=== PATIENT | male | born 1955 | race African-American/Black ===

== ENCOUNTER 2020-06-23 19:48 | Emergency (ER) | payer BC ==
[~2020-06-23] VITALS: Ht 175.3 cm; Wt 78.0 kg
[~2020-06-23 19:48] MED LIST: AMIODARONE HCL 50MG/ML 3ML VIAL IV ONE; CALCIUM CHLORIDE 1GM/10ML SYR IV ONE; EPINEPHRINE 0.1MG/ML (1:10,000) 10ML SYR ONE; SODIUM BICARBONATE 8.4% 1 MEQ/ML 50ML SYR IV ONE
[2020-06-23] MEDS ORDERED: SODIUM CHLORIDE 0.9% 1000ML BAG (SEPSIS BOLUS) IV ONE (20:15)
[2020-06-23 21:15] LABS: BG BASE EXCESS -10.9 mmol/L (-2.0-2.0); BG CARBOXYHEMOGLOBIN 0.1 % (0.5-1.5); BG DEOXYHEMOGLOBIN 2.7 % (0.0-5.0); BG FRACTION INSPIRED OXYGEN 21; BG HCO3 ACT 12.5 mmol/L (22.0-26.0); BG OXYGEN SATURATION 97.3 % (92.0-98.5); BG OXYHEMOGLOBIN 97.2 % (94.0-97.0); BG PCO2 19.7 mmHg (35.0-45.0); BG PO2 114.4 mmHg (75.0-100.0); BG SAMPLE SITE RIGHT RADIAL; BG TOTAL HEMOGLOBIN 6.2 g/dL (12.0-18.0); BG VENT MODE ROOM AIR
[2020-06-23 21:36] LABS: BASOPHILS % 0.1 % (0.0-2.0); LYMPHOCYTES % 10.3 % (20.0-50.0); MEAN CORPUSCULAR HEMOGLOBIN 27.4 pg (28.0-32.0); MEAN CORPUSCULAR VOLUME 86.1 fL (80.0-94.0); MEAN PLATELET VOLUME 10.7 fl (7.4-10.4); MONOCYTES % 5.9 % (2.0-8.0); NEUTROPHILS % 83.7 % (40.0-76.0); PLATELET 185 x1000/uL (130-400); RED CELL DISTRIBUTION WIDTH 14.1 % (11.6-14.6)
[2020-06-23 21:40] LABS: HEMATOCRIT. 18.9 % (42.0-52.0)
[2020-06-23 21:43] LABS: CHLORIDE 101 mEq/L (98-107)
[2020-06-23 21:44] LABS: INR 1.1; PROTHROMBIN TIME 12.1 sec (9.6-11.0)
[2020-06-23 21:47] LABS: ETHANOL BLOOD < 10 mg/dL
[2020-06-23 22:00] VITALS: BP 109/69
[2020-06-23] MEDS ORDERED: INSULIN REGULAR (HUMULIN R) 300UNITS/3ML VIAL SUBCUT NR (22:00)
[2020-06-23 22:03] LABS: CREATINE KINASE 3480 IU/L (39-308)
[2020-06-23] MEDS ORDERED: ASPIRIN 300MG SUPP PR ONE (22:45)
[2020-06-23] MEDS ORDERED: ATENOLOL 25MG TABLET PO ONE (22:45)
[2020-06-23] MEDS ORDERED: PIPERACILLIN/TAZOBACTAM 3.375GM/50ML PREMIX IV ONE (23:00)
[2020-06-23] MEDS ORDERED: PIPERACILLIN/TAZ 3.375G PREMIX 50 ML IV NR (23:45)
[2020-06-24] MEDS ORDERED: VANCOMYCIN 1 G PREMIX 200 ML IV NR
== END 2020-06-23 23:33 ==
LOC: ER 19:48 → ENRESERV 20:37 → CANRESERV 20:37 → EDBEDREQSVC 22:43 → EDBEDREQ 22:43 → EDBEDREQTM 22:43 → ER 23:33
DX: I21.4 Non-ST elevation (NSTEMI) myocardial infarction (principal); M62.82 Rhabdomyolysis; N17.9 Acute kidney failure, unspecified; E87.2 Acidosis; I46.9 Cardiac arrest, cause unspecified; R33.9 Retention of urine, unspecified; E87.8 Other disorders of electrolyte and fluid balance, not elsewhere classified; D62 Acute posthemorrhagic anemia; E11.65 Type 2 diabetes mellitus with hyperglycemia; I10 Essential (primary) hypertension
CPT/HCPCS: 31500; 36415; 36556; 36600; 70450; 71045; 80053; 80320; 82375; 82550; 82728; 82805; 82962; 83605; 83615; 83690; 83880; 84145; 84484; 85025; 85384; 85610; 87040; 93005; 99291; J0282; J1815; J3490; J7030; A4315; G0480